=== PATIENT | male | born 1955 | race Caucasian/White ===

== ENCOUNTER 2017-02-11 20:33 | Inpatient (IN) | payer SELFPAY ==
[~2017-02-11] VITALS: Ht 180.3 cm; Wt 69.2 kg
[2017-02-11] MEDS ORDERED: GABA-533 PO (20:49)
[2017-02-11] MEDS ORDERED: OXYC10 PO (20:49)
[2017-02-11] MEDS ORDERED: IBUP-1547 PO (20:49)
[2017-02-11] MEDS ORDERED: TRAM50TA4 PO (20:49)
[2017-02-11] MEDS ORDERED: BACL10TA PO (20:49)
[2017-02-11] MEDS ORDERED: TAMS0.4C32 PO (20:49)
[2017-02-11] MEDS ORDERED: LEVE500T53 PO (20:49)
[2017-02-11] MEDS ORDERED: DOCU250C91 PO (20:49)
[2017-02-11] MEDS ORDERED: AMIT50TA3 PO (20:49)
[2017-02-11] MEDS ORDERED: OMEG-12 PO (20:49)
[2017-02-11] MEDS ORDERED: VENL-193 PO (20:49)
[2017-02-11] MEDS ORDERED: HYDR25TA PO (20:49)
[2017-02-11] MEDS ORDERED: HYD50 PO (20:49)
[2017-02-11 20:50] LABS: BASOPHILS # (AUTO) 0.01 K/uL (0.00-0.20); BASOPHILS % (AUTO) 0.1 % (0.0-2.0); EOSINOPHILS # (AUTO) 0.39 K/uL (0.00-0.70); EOSINOPHILS % (AUTO) 3.58 % (1.0-6.0); HEMATOCRIT 35.5 % (41-53); HEMOGLOBIN 11.8 g/dL (13.5-17.5); LYMPHOCYTES # (AUTO) 0.8 K/uL (1.0-4.8); LYMPHOCYTES % (AUTO) 7.6 % (22.0-44.0); MEAN CORPUSCULAR HGB CONC 33.2 G/dL (31.0-37.0); MEAN CORPUSCULAR VOLUME 84 fL (80-100); MONOCYTES # (AUTO) 0.6 K/uL (0.1-1.0); MONOCYTES % (AUTO) 5.3 % (2.0-9.0); NEUTROPHILS # (AUTO) 9.2 K/uL (1.8-7.7); NEUTROPHILS % (AUTO) 83.5 % (40.0-70.0); PLATELET COUNT (AUTO) 267 K/uL (150-450); RED BLOOD CELL COUNT(AUTO) 4.21 MIL/uL (4.50-5.90); RED CELL DISTRIBUTION WIDTH 16.5 % (11.5-14.5)
[2017-02-11 21:07] LABS: TROPONIN I < 0.02 ng/mL (0.00-0.05)
[2017-02-11 21:14] LABS: AMMONIA 15 umol/L (11-32)
[2017-02-11] MEDS ORDERED: IOVERSOL 350 MG/ML 100 ML VIAL ONE (21:15)
[2017-02-11] MEDS ORDERED: SODIUM CHLORIDE 0.9% 100 ML ONE (21:16)
[2017-02-11 21:24] LABS: ALANINE AMINOTRANSFERASE 110 U/L (12-78); ALBUMIN 3.7 g/dL (3.4-5.0); ANION GAP 14 mmol/L (8-16); ASPARTATE AMINOTRANSFERASE 79 U/L (15-37); BILIRUBIN,TOTAL 0.4 mg/dL (0.1-1.0); CALCIUM, TOTAL 8.8 mg/dL (8.8-10.5); CARBON DIOXIDE 24 mmol/L (22-29); CHLORIDE 106 mmol/L (98-107); CREATINE KINASE MB 21.9 ng/mL (0-5); CREATINE KINASE, TOTAL 460 U/L (39-308); CREATININE 1.45 mg/dL (0.60-1.30); GLOMERULAR FILTR. RATE CALC 49 mL/min (>60); SODIUM SERUM 144 mmol/L (136-145); TOTAL PROTEIN, SERUM 6.5 g/dL (6.4-8.2); UREA NITROGEN, BLOOD 35 mg/dL (7-18)
[2017-02-11 21:25] LABS: POTASSIUM 2.7 mmol/L (3.5-5.1)
[2017-02-11] MEDS: POTASSIUM CHL 10 MEQ/WATER 50 ML IV SCH ×3 (21:44→23:47)
[2017-02-11] MEDS ORDERED: SODIUM CHLORIDE 0.9% 1,000 ML IV ONE (21:45)
[2017-02-11] MEDS ORDERED: MAGNESIUM SULFATE 2 GM, MVI, ADULT NO.1 WITH VIT K 10 ML, THIAMINE HCL 100 MG, FOLIC AC... IV ONE ×5 (22:15)
[2017-02-11] MEDS ORDERED: LORazepam 2 MG/ML VIAL IVP ONE (22:15)
[2017-02-11 22:27] LABS: GLUCOSE,POINT OF CARE 78 MG/DL (70-110)
[2017-02-11 22:35] LABS: APPEARANCE,URINE CLEAR (CLEAR); GLUCOSE, URINE (UA) NEGATIVE (NEGATIVE); KETONES,URINE NEGATIVE (NEGATIVE); LEUKOCYTE ESTERASE ,URINE NEGATIVE (NEGATIVE); OCCULT BLOOD,URINE SMALL (NEGATIVE); PROTEIN,URINE NEGATIVE (NEGATIVE)
[2017-02-11 22:37] LABS: ADD UA MICROSCOPIC YES
[2017-02-11 22:47] LABS: WBC,URINE 0-2 /HPF (0-5)
[2017-02-11] MEDS ORDERED: PHENYTOIN SODIUM 1,000 MG in SODIUM CHLORIDE 0.9% 150 ML IV ONE (23:15)
[2017-02-11] MEDS ORDERED: ACETAMINOPHEN/CODEINE 300-30 MG TABLET PO PRN (23:15)
[2017-02-11] MEDS ORDERED: POTASSIUM CHLORIDE 20 MEQ ER TABLET PO PRN (23:15)
[2017-02-11 23:29] LABS: SALICYLATE 3.8 mg/dL (2.8-20.0)
[2017-02-11 23:46] LABS: ACETAMINOPHEN < 2 mcg/mL (10-30)
[2017-02-12] VITALS (8 sets, daily range): BP systolic 99–132; BP diastolic 46–68
[2017-02-12] MEDS: POTASSIUM CHL 10 MEQ/WATER 50 ML IV SCH (01:20)
[2017-02-12 06:41] LABS: BASOPHILS # (AUTO) 0.01 K/uL (0.00-0.20); BASOPHILS % (AUTO) 0.1 % (0.0-2.0); EOSINOPHILS # (AUTO) 0.06 K/uL (0.00-0.70); EOSINOPHILS % (AUTO) 0.57 % (1.0-6.0); HEMATOCRIT 36.3 % (41-53); LYMPHOCYTES # (AUTO) 0.5 K/uL (1.0-4.8); LYMPHOCYTES % (AUTO) 4.5 % (22.0-44.0); MEAN CORPUSCULAR HEMOGLOBIN 27.9 pg (26.0-34.0); MEAN CORPUSCULAR HGB CONC 32.9 G/dL (31.0-37.0); MEAN CORPUSCULAR VOLUME 85 fL (80-100); MONOCYTES # (AUTO) 0.5 K/uL (0.1-1.0); MONOCYTES % (AUTO) 4.1 % (2.0-9.0); PLATELET COUNT (AUTO) 277 K/uL (150-450); RED BLOOD CELL COUNT(AUTO) 4.29 MIL/uL (4.50-5.90); RED CELL DISTRIBUTION WIDTH 15.8 % (11.5-14.5); WHITE BLOOD COUNT (AUTO) 11.1 K/uL (4.5-11.0)
[2017-02-12 06:47] LABS: ANION GAP 13 mmol/L (8-16); CALCIUM, TOTAL 8.5 mg/dL (8.8-10.5); CARBON DIOXIDE 23 mmol/L (22-29); CHLORIDE 108 mmol/L (98-107); CREATININE 1.12 mg/dL (0.60-1.30); GLOMERULAR FILTR. RATE CALC > 60 mL/min (>60); POTASSIUM 3.1 mmol/L (3.5-5.1); SODIUM SERUM 144 mmol/L (136-145); UREA NITROGEN, BLOOD 24 mg/dL (7-18)
[2017-02-12 06:53] LABS: NEUTROPHILS % (AUTO) 90.8 % (40.0-70.0)
[2017-02-12] MEDS ORDERED: SODIUM CHLORIDE 0.9% 250 ML IV ONE (07:52)
[2017-02-12] MEDS: PANTOPRAZOLE SODIUM 40 MG/VIAL IVP SCH (07:53)
[2017-02-12] MEDS: POTASSIUM CHL 10 MEQ/WATER 50 ML IV PRN ×6 (07:54→21:57)
[2017-02-12] MEDS ORDERED: ACETAMINOPHEN 650 MG RECTAL SUPPOSITORY PR PRN (10:45)
[2017-02-12 10:51] LABS: RBC MORPHOLOGY COMMENT ABNORMAL RBC MORPH
[2017-02-12] MEDS: CefTRIAXone 1 GM/DEXTROSE 50 ML IV SCH (11:49)
[2017-02-12] MEDS: HEPARIN SODIUM,PORCINE 5,000 UNITS/ML VIAL SQ SCH ×3 (11:49→23:33)
[2017-02-12] MEDS: DEXTROSE 5%-0.45% SODIUM CHL 1,000 ML IV SCH ×2 (11:51→23:44)
[2017-02-12] MEDS ORDERED: LevETIRAcetam 1,000 MG in DEXTROSE 5%-WATER 100 ML IV ONE (12:00)
[2017-02-12] MEDS: LORazepam 2 MG/ML VIAL IVP PRN ×2 (12:57→23:32)
[2017-02-12 16:40] LABS: POTASSIUM 2.7 mmol/L (3.5-5.1)
[2017-02-12 20:57] LABS: PROCALCITONIN (PCT) 1.23 ng/mL (<0.50)
[2017-02-12] MEDS ORDERED: LevETIRAcetam 500 MG TABLET PO SCH (21:00)
[2017-02-12] MEDS ORDERED: SODIUM CHLORIDE 0.9% 50 ML ONE (23:31)
[2017-02-12] MEDS: ACETAMINOPHEN 325 MG TABLET PO PRN (23:33)
[2017-02-12] MEDS: LevETIRAcetam 500 MG in DEXTROSE 5%-WATER 100 ML IV SCH (23:40)
[2017-02-13] MEDS: POTASSIUM CHL 10 MEQ/WATER 50 ML IV PRN ×7 (02:20→17:27)
[2017-02-13 05:46] VITALS: BP 96/50
[2017-02-13 06:50] LABS: BASOPHILS % (AUTO) 0.1 % (0.0-2.0); EOSINOPHILS % (AUTO) 0.6 % (1.0-6.0); HEMATOCRIT 30.9 % (41-53); HEMOGLOBIN 10.4 g/dL (13.5-17.5); LYMPHOCYTES # (AUTO) 0.9 K/uL (1.0-4.8); LYMPHOCYTES % (AUTO) 7.4 % (22.0-44.0); MEAN CORPUSCULAR HEMOGLOBIN 28.4 pg (26.0-34.0); MEAN CORPUSCULAR HGB CONC 33.7 G/dL (31.0-37.0); MEAN CORPUSCULAR VOLUME 84 fL (80-100); MONOCYTES # (AUTO) 0.8 K/uL (0.1-1.0); MONOCYTES % (AUTO) 6.6 % (2.0-9.0); NEUTROPHILS # (AUTO) 10.1 K/uL (1.8-7.7); PLATELET COUNT (AUTO) 220 K/uL (150-450); RED BLOOD CELL COUNT(AUTO) 3.67 MIL/uL (4.50-5.90); RED CELL DISTRIBUTION WIDTH 15.9 % (11.5-14.5); WHITE BLOOD COUNT (AUTO) 11.9 K/uL (4.5-11.0)
[2017-02-13 07:15] LABS: ALANINE AMINOTRANSFERASE 82 U/L (12-78); ANION GAP 14 mmol/L (8-16); ASPARTATE AMINOTRANSFERASE 65 U/L (15-37); BILIRUBIN,TOTAL 0.5 mg/dL (0.1-1.0); CALCIUM, TOTAL 8.5 mg/dL (8.8-10.5); CARBON DIOXIDE 24 mmol/L (22-29); CHLORIDE 105 mmol/L (98-107); CREATININE 1.08 mg/dL (0.60-1.30); GLOMERULAR FILTR. RATE CALC > 60 mL/min (>60); POTASSIUM 3.2 mmol/L (3.5-5.1); SODIUM SERUM 143 mmol/L (136-145); TOTAL PROTEIN, SERUM 6.1 g/dL (6.4-8.2); UREA NITROGEN, BLOOD 21 mg/dL (7-18)
[2017-02-13 07:16] LABS: NEUTROPHILS % (AUTO) 85.3 % (40.0-70.0)
[2017-02-13 07:50] LABS: RBC MORPHOLOGY COMMENT ABNORMAL RBC MORPH
[2017-02-13 07:59] VITALS: BP 98/53
[2017-02-13] MEDS: HEPARIN SODIUM,PORCINE 5,000 UNITS/ML VIAL SQ SCH ×3 (09:09→23:44)
[2017-02-13] MEDS: PANTOPRAZOLE SODIUM 40 MG/VIAL IVP SCH (09:09)
[2017-02-13] MEDS: LORazepam 2 MG/ML VIAL IVP PRN ×3 (09:10→20:16)
[2017-02-13] MEDS ORDERED: SODIUM CHLORIDE 0.9% 250 ML IV ONE (10:43)
[2017-02-13] MEDS: CefTRIAXone 1 GM/DEXTROSE 50 ML IV SCH (10:46)
[2017-02-13 11:10] VITALS: BP 132/77
[2017-02-13] MEDS: LevETIRAcetam 500 MG in DEXTROSE 5%-WATER 100 ML IV SCH ×2 (11:13→23:43)
[2017-02-13] MEDS: DEXTROSE 5%-0.45% SODIUM CHL 1,000 ML IV SCH (13:58)
[2017-02-13 19:32] VITALS: BP 120/77
[2017-02-13] MEDS: DOXYCYCLINE 100 MG CAPSULE PO SCH (23:43)
[2017-02-13 23:50] VITALS: BP 122/72
[2017-02-14] VITALS (7 sets, daily range): BP systolic 118–160; BP diastolic 72–81
[2017-02-14] MEDS: LORazepam 2 MG/ML VIAL IVP PRN ×3 (00:30→13:15)
[2017-02-14] MEDS: DEXTROSE 5%-0.45% SODIUM CHL 1,000 ML IV SCH ×2 (02:37→16:45)
[2017-02-14] MEDS: DOXYCYCLINE 100 MG CAPSULE PO SCH ×2 (07:38→20:01)
[2017-02-14] MEDS: HEPARIN SODIUM,PORCINE 5,000 UNITS/ML VIAL SQ SCH ×3 (07:39→23:22)
[2017-02-14] MEDS: PANTOPRAZOLE SODIUM 40 MG/VIAL IVP SCH (07:39)
[2017-02-14] MEDS: ACETAMINOPHEN 325 MG TABLET PO PRN ×3 (08:31→19:37)
[2017-02-14] MEDS: CefTRIAXone 1 GM/DEXTROSE 50 ML IV SCH (10:47)
[2017-02-14] MEDS: LevETIRAcetam 500 MG in DEXTROSE 5%-WATER 100 ML IV SCH ×2 (13:14→23:22)
[2017-02-14] MEDS ORDERED: LORazepam 2 MG/ML VIAL IVP PRN (15:30)
[2017-02-14] MEDS: QUEtiapine FUMARATE 25 MG TABLET PO SCH ×2 (15:46→20:01)
[2017-02-14] MEDS ORDERED: BUPR1PAT3 TD (17:01)
[2017-02-14] MEDS: VENLAFAXINE HCL 150 MG ER CAPSULE PO SCH (18:22)
[2017-02-14] MEDS: OxyCODONE HCL/ACETAMINOPHEN 5-325 MG TABLET PO PRN ×2 (18:23→23:35)
[2017-02-14] MEDS: NICOTINE 21 MG/24 HOUR PATCH TD SCH (18:23)
[2017-02-14] MEDS: GABAPENTIN 300 MG CAPSULE PO SCH (20:01)
[2017-02-14] MEDS: AMITRIPTYLINE HCL 50 MG TABLET PO SCH (21:44)
[2017-02-14] MEDS: TAMSULOSIN HCL 0.4 MG CAPSULE PO SCH (21:44)
[2017-02-15 04:52] VITALS: BP_SYST 142; BP_DIAS 71; BP_DIAS 72
[2017-02-15] MEDS: DEXTROSE 5%-0.45% SODIUM CHL 1,000 ML IV SCH (05:33)
[2017-02-15 07:17] VITALS: BP 140/75
[2017-02-15] MEDS ORDERED: HYDR25TA PO (07:18)
[2017-02-15] MEDS ORDERED: VIST50 PO (07:18)
[2017-02-15] MEDS ORDERED: FERR-89 PO (07:18)
[2017-02-15] MEDS: HEPARIN SODIUM,PORCINE 5,000 UNITS/ML VIAL SQ SCH (08:00)
[2017-02-15 08:29] LABS: BASOPHILS % (AUTO) 0.2 % (0.0-2.0); EOSINOPHILS % (AUTO) 3.8 % (1.0-6.0); HEMATOCRIT 32.6 % (41-53); HEMOGLOBIN 10.8 g/dL (13.5-17.5); LYMPHOCYTES # (AUTO) 0.9 K/uL (1.0-4.8); LYMPHOCYTES % (AUTO) 12.2 % (22.0-44.0); MEAN CORPUSCULAR HEMOGLOBIN 27.7 pg (26.0-34.0); MEAN CORPUSCULAR HGB CONC 33.1 G/dL (31.0-37.0); MEAN CORPUSCULAR VOLUME 84 fL (80-100); MONOCYTES # (AUTO) 0.4 K/uL (0.1-1.0); NEUTROPHILS # (AUTO) 5.5 K/uL (1.8-7.7); NEUTROPHILS % (AUTO) 77.8 % (40.0-70.0); PLATELET COUNT (AUTO) 278 K/uL (150-450); RED BLOOD CELL COUNT(AUTO) 3.89 MIL/uL (4.50-5.90); WHITE BLOOD COUNT (AUTO) 7.1 K/uL (4.5-11.0)
[2017-02-15 08:38] LABS: ANION GAP 9 mmol/L (8-16); CALCIUM, TOTAL 8.3 mg/dL (8.8-10.5); CARBON DIOXIDE 27 mmol/L (22-29); CHLORIDE 107 mmol/L (98-107); CREATININE 0.84 mg/dL (0.60-1.30); GLOMERULAR FILTR. RATE CALC > 60 mL/min (>60); POTASSIUM 3.2 mmol/L (3.5-5.1); SODIUM SERUM 143 mmol/L (136-145); UREA NITROGEN, BLOOD 7 mg/dL (7-18)
[2017-02-15] MEDS: PANTOPRAZOLE SODIUM 40 MG/VIAL IVP SCH (08:39)
[2017-02-15] MEDS: NICOTINE 21 MG/24 HOUR PATCH TD SCH (08:40)
[2017-02-15] MEDS: TAMSULOSIN HCL 0.4 MG CAPSULE PO SCH (08:41)
[2017-02-15] MEDS: DOXYCYCLINE 100 MG CAPSULE PO SCH (08:41)
[2017-02-15] MEDS: AMITRIPTYLINE HCL 50 MG TABLET PO SCH (08:41)
[2017-02-15] MEDS: QUEtiapine FUMARATE 25 MG TABLET PO SCH (08:41)
[2017-02-15] MEDS: VENLAFAXINE HCL 150 MG ER CAPSULE PO SCH (08:41)
[2017-02-15] MEDS: GABAPENTIN 300 MG CAPSULE PO SCH (08:41)
[2017-02-15] MEDS ORDERED: POTASSIUM CHLORIDE 20 MEQ ER TABLET PO ONE (09:00)
[2017-02-15] MEDS ORDERED: AMOX1TAB16 PO (09:02)
== END 2017-02-15 10:45 | disposition home or self-care (01) | DRG 871 ==
LOC: EMS 20:37 → ICUN 23:08 → ICU 02-12 08:40 → 5N 02-12 17:20
PROVIDERS: ADMIT Internal Medicine; ATTEND Internal Medicine
DX: A41.9 Sepsis, unspecified organism (principal); G93.40 Encephalopathy, unspecified; J18.9 Pneumonia, unspecified organism; G40.909 Epilepsy, unspecified, not intractable, without status epilepticus; D64.9 Anemia, unspecified; R74.8 Abnormal levels of other serum enzymes; M54.9 Dorsalgia, unspecified; G89.29 Other chronic pain; E87.6 Hypokalemia; R32 Unspecified urinary incontinence; Z87.01 Personal history of pneumonia (recurrent); Z79.899 Other long term (current) drug therapy
CPT/HCPCS: 51702; 70496; 70551; 82948; 82962; 83605; 83735; 84132; 84145; 87040; 87081; 92610; 93005; 95816; 96361; 96365; 96375; 99291; C9113; G0480; G0481; G0482; J0696; J0712; J1165; J1644; J2060; J3411; J3475; J3480; J3490; J7030; J7050; J7060